=== PATIENT | female | born 1980 | race Caucasian/White ===

== ENCOUNTER 2023-12-08 21:47 | Emergency (ER) | payer OTHER ==
[2023-12-08 21:48] VITALS: TEMP 98.3
[2023-12-08] MEDS ORDERED: AMOX875T2 PO (23:03)
[2023-12-08] MEDS ORDERED: KETO10TAB PO (23:03)
[2023-12-08 23:17] VITALS: O2SAT 98
[2023-12-08 23:31] VITALS: BP 148/97
[2023-12-08] MEDS: KETOROLAC 30 MG/ML 1ML VIAL IM ONE (23:42)
[2023-12-08] MEDS: AUGMENTIN 875 MG TAB PO ONE (23:42)
== END 2023-12-08 23:46 | disposition home or self-care (01) ==
LOC: M ED 21:47
DX: S59.912A Unspecified injury of left forearm, initial encounter (principal); W54.0XXA Bitten by dog, initial encounter; Y92.9 Unspecified place or not applicable; Y93.9 Activity, unspecified; Y99.9 Unspecified external cause status; Z79.2 Long term (current) use of antibiotics
CPT/HCPCS: 73090; 96372; 99284; J1885

== ENCOUNTER 2023-12-11 15:30 | Emergency (ER) | payer OTHER ==
[~2023-12-11] VITALS: Ht 167.6 cm; Wt 83.5 kg
[~2023-12-11 15:30] MED LIST: AMOX875T2 PO; KETO10TAB PO
[2023-12-11 17:17] LABS: BASO # 0.1 10^3/uL (0.0-0.2); BASO % 0.9 % (0.0-1.0); EOS # 0.2 10^3/uL (0.0-0.5); EOS % 1.9 % (0.0-3.0); HEMATOCRIT 41.4 % (36.0-47.0); HEMOGLOBIN 14.1 g/dl (12.0-15.5); LYMPH # 1.8 10^3/uL (1.5-5.0); LYMPH % 21.8 % (24.0-44.0); MEAN CORPUSCULAR HEMOGLOBIN 29.9 pg (27.0-33.0); MEAN CORPUSCULAR HGB CONC 34.1 g/dl (32.0-36.5); MEAN CORPUSCULAR VOLUME 87.7 fl (80.0-96.0); MONO # 0.6 10^3/uL (0.0-0.8); MONO % 7.2 % (2.0-8.0); NEUTROPHILS # 5.5 10^3/uL (1.5-8.5); NEUTROPHILS % 67.8 % (36.0-66.0); PLATELET COUNT, AUTOMATED 385 10^3/uL (150-450); RED BLOOD COUNT 4.72 10^6/uL (4.00-5.40)
[2023-12-11 17:27] LABS: ERYTHROCYTE SEDIMENTATION RATE 14 mm/hr (0-20)
[2023-12-11 18:47] VITALS: BP 142/96; TEMP 97.9; O2SAT 99
== END 2023-12-11 18:50 | disposition home or self-care (01) ==
LOC: M ED 15:30
DX: Z48.00 Encounter for change or removal of nonsurgical wound dressing (principal); W54.0XXD Bitten by dog, subsequent encounter; Y92.9 Unspecified place or not applicable; Y93.9 Activity, unspecified; Y99.9 Unspecified external cause status